=== PATIENT | female | born 1980 | race Caucasian/White ===

== ENCOUNTER 2017-02-27 10:37 | Emergency (ER) | payer OTHER, BC ==
[~2017-02-27] VITALS: Ht 165.1 cm; Wt 86.2 kg
[~2017-02-27 10:37] MED LIST: ACYCLOVIR800 MG PO; CLARITIN10 MG PO; NKHM; PRENATAL1 TA1 PO
[2017-02-27] MEDS ORDERED: NAPROSYN500 MG PO (13:04)
== END 2017-02-27 13:09 | disposition home or self-care (01) ==
LOC: ED 10:37
DX: M25.512 Pain in left shoulder (principal); F17.200 Nicotine dependence, unspecified, uncomplicated

== ENCOUNTER → 2021-03-08 | Day surgery (SDC) | payer BC ==
[~2021-03-08] VITALS: Ht 165.1 cm; Wt 80.3 kg
[~2021-03-08] MED LIST changes: +LINZESS290 MC1 PO; +NAPROSYN500 MG PO; +WELLBUTRIN SR100 MG PO
[2021-03-08 08:26] VITALS: BP 110/61
[2021-03-08 09:19] VITALS: BP 102/63
[2021-03-08 09:34] VITALS: BP 112/65
== END | disposition home or self-care (01) ==
LOC: SDC 03-05 08:45
PROVIDERS: ATTEND Surgery
DX: K59.00 Constipation, unspecified (principal); D12.8 Benign neoplasm of rectum; Z90.710 Acquired absence of both cervix and uterus; Z98.51 Tubal ligation status; Z79.899 Other long term (current) drug therapy

== ENCOUNTER → 2022-11-21 | Day surgery (SDC) | payer BC ==
[~2022-11-21] VITALS: Ht 162.5 cm; Wt 81.2 kg
[~2022-11-21] MED LIST changes: +COLACE100 MG PO; +HYDROCODONE-AC1 EAC1 PO; +ONDANSETRON HYDR4 M1 PO
[2022-11-21 12:20] VITALS: BP 93/58
[2022-11-21 13:30] VITALS: BP 105/57
[2022-11-21 13:45] VITALS: BP 98/60
[2022-11-21 14:00] VITALS: BP 110/72
== END | disposition home or self-care (01) ==
LOC: SDC 11-19 08:00
PROVIDERS: ATTEND Surgery
DX: D17.79 Benign lipomatous neoplasm of other sites (principal); K58.9 Irritable bowel syndrome, unspecified; Z98.890 Other specified postprocedural states; Z90.710 Acquired absence of both cervix and uterus; Z79.899 Other long term (current) drug therapy

== ENCOUNTER → 2022-12-23 | Outpatient (CLI) | payer BC | END | disposition home or self-care (01) | LOC: CT 12-16 01:35 | PROVIDERS: ATTEND Family Medicine | DX: K59.04 Chronic idiopathic constipation (principal) ==

== ENCOUNTER → 2023-11-19 | Outpatient (CLI) | payer BC | END | disposition home or self-care (01) | LOC: MAMMO 13:18 | PROVIDERS: ATTEND Family Medicine | DX: Z12.31 Encounter for screening mammogram for malignant neoplasm of breast (principal); N63.10 Unspecified lump in the right breast, unspecified quadrant ==

== ENCOUNTER → 2023-12-03 | Outpatient (CLI) | payer BC | END | disposition home or self-care (01) | LOC: MAMMO 00:20 | PROVIDERS: ATTEND Family Medicine | DX: N63.10 Unspecified lump in the right breast, unspecified quadrant (principal); R92.8 Other abnormal and inconclusive findings on diagnostic imaging of breast; R92.30 Dense breasts, unspecified ==